=== PATIENT | female | born 1965 | race Caucasian/White ===

== ENCOUNTER → 2017-03-08 | Outpatient (CLI) | payer OTHER ==
[~2017-03-08] MED LIST: ADVIN10/60 INH; ALBU1AER9 INH; ATRINS NEB; B-COTAB18 PO; CARI350T28 PO; CETI10TA84 PO; DIAZ2TAB PO; ESOM1CAP34 PO; ESOM20CA PO; LEVO5TAB2 PO; MONT1TAB3 PO; MULT-506 PO; TRIA1SPR4; VNTHFA/IN INH
--- NOTE | 2017-03-08 10:41 | DIAGNOSTIC IMAGING REPORT ---
FUSION CT SINUSES W/O CLINICAL HISTORY: R51 Facial [id number] COMPARISON STUDY: No previous studies for comparison. FINDINGS: Helical images were acquired in the transverse plane. The study was reviewed on the 3-D workstation. No orbital lesions are visualized. There is no hydrocephalus. There is a left maxilla sinus air-fluid level consistent with acute sinusitis. The mastoid air cells are symmetrically aerated. The middle ear cavities are well aerated. There is mild mucosal thickening within the frontal, ethmoid and sphenoid sinuses. The right ostiomeatal unit appears patent. The ostial and infundibular portions of the left ostiomeatal unit are occluded by soft tissue. There is a small right-sided nasal septal spur. IMPRESSION: 1. Pansinus mucosal thickening 2. Left maxillary sinus air-fluid level suspicious for acute sinusitis 3. Occlusion of the ostial and infundibular portions of the left ostiomeatal unit by soft tissue Electronically signed by: Carlos Barrett M.D. 03/08/2017 10:38 AM Dictated Date/Time: 03/08/2017 10:25 AM
== END | disposition home or self-care (01) ==
LOC: C.CTS 10:09
PROVIDERS: ATTEND Physician Assistant
DX: R51 Headache (principal); D75.89 Other specified diseases of blood and blood-forming organs

== ENCOUNTER → 2017-05-09 | Outpatient (CLI) | payer OTHER | END | disposition home or self-care (01) | LOC: C.PAPS 16:08 | PROVIDERS: ATTEND Physician Assistant | DX: Z12.4 Encounter for screening for malignant neoplasm of cervix (principal) ==

== ENCOUNTER → 2017-05-09 | Outpatient (CLI) | payer OTHER ==
--- NOTE | 2017-05-09 14:37 | DIAGNOSTIC IMAGING REPORT ---
CHEST 2 VIEWS ROUTINE CLINICAL HISTORY: Cough COMPARISON STUDY: 04/20/2013 FINDINGS: The cardiac and mediastinal contours are normal. There is no evidence of focal pulmonary consolidation. There is no evidence of failure. No pleural effusions are visualized.[ IMPRESSION: No active disease in the chest. Electronically signed by: Carlos Barrett M.D. 05/09/2017 2:36 PM Dictated Date/Time: 05/09/2017 2:35 PM
== END | disposition home or self-care (01) ==
LOC: C.RADBC 14:15
PROVIDERS: ATTEND Physician Assistant Medical
DX: R05 Cough (principal)

== ENCOUNTER 2017-06-04 15:48 | Emergency (ER) | payer OTHER ==
[~2017-06-04] VITALS: Ht 174 cm; Wt 72.0 kg
[~2017-06-04 15:48] MED LIST changes: -ADVIN10/60 INH; -ATRINS NEB; -CETI10TA84 PO; -DIAZ2TAB PO; -ESOM1CAP34 PO; -LEVO5TAB2 PO; -MONT1TAB3 PO; -VNTHFA/IN INH
[2017-06-04 15:51] VITALS: Ht 174 cm; Wt 72.0 kg
[2017-06-04] MEDS ORDERED: MONT1TAB3 PO (16:12)
[2017-06-04] MEDS ORDERED: LEVO-371 PO (16:12)
[2017-06-04] MEDS ORDERED: ESOM1CAP34 PO (16:12)
[2017-06-04] MEDS ORDERED: VNTHFA/IN INH (16:12)
[2017-06-04] MEDS ORDERED: ADVIN10/60 INH (16:12)
[2017-06-04] MEDS ORDERED: CETI10TA84 PO (16:12)
[2017-06-04] MEDS ORDERED: ATRINS NEB (16:12)
[2017-06-04] MEDS ORDERED: ONDANSETRON INJ 2 MG/ML 2 ML VIAL IV STA (16:19)
[2017-06-04] MEDS ORDERED: KETOROLAC TROMETHAMINE 30 MG/ML VIAL IV STA (16:19)
--- NOTE | 2017-06-04 16:45 | EMERGENCY ROOM VISIT NOTE ---
History First contact with patient: 16:04 Chief Complaint: RIB PAIN Stated Complaint: BROKEN RIB, PNEMONIA History of Present Illness The patient is a 51 year old female who presents to the Emergency Room with complaints of left sided back pain. The patient was at a [employer] 2 hours ago and had a coughing fit during which point she felt a pop and immediate pain over her left side. She denies any pain at rest but when she has episodes of coughing she has 10/10 sharp pain over the lower thoracic ribs on her left side. She becomes very nauseous and has almost passed out because the pain was so severe. She tried to take Motrin for the discomfort but it was not helpful. Patient is currently receiving treatment for Pneumonia with Levaquin started by her PCP after failure of multiple other oral antibiotics. The patient has no chronic medical conditions and other than medications for allergies is on no other medications. She denies an fever, chills, abdominal pain, diarrhea, changes in vision, headache, or any other acute findings. Review of Systems See HPI for pertinent positives and negatives. A total of ten systems were reviewed and were otherwise negative. Past Medical/Surgical History Medical Problems: (1) Asthma (2) GERD (gastroesophageal reflux disease) (3) History of cystitis (4) Irritable bowel syndrome (IBS) (5) Lymphocytic colitis (6) Migraine headache (7) Pleurisy Surgical Problems: (1) History of tonsillectomy and adenoidectomy Social History Smoking Status: Never Smoker Current/Historical Medications Scheduled Albuterol Hfa (Ventolin Hfa), 2-4 PUFFS INH Q6H B-Complex Vitamins (Vitamin B Complex), 5,000 MCG PO QD Cetirizine (Zyrtec), 10 MG PO DAILY Diazepam (Valium), 2 MG PO BID Esomeprazole Magnesium (Esomeprazole Magnesium), 40 MG PO DAILY Fluticasone Prop/Salmeterol (Advair Diskus 100/50 60 Dose), 1 PUFFS INH BID Ipratropium [place] (Ipratropium [place]), 1 VIAL NEB DAILY Levocetirizine Dihydrochloride (Xyzal), 1 TAB PO DAILY Montelukast Sodium (Singulair), 1 TAB PO DAILY Multivitamin (Multivitamin), 1 TAB PO DAILY Allergies Coded Allergies: Penicillins (Verified Allergy, Intermediate, HIVES, 06/04/17) Sulfamethoxazole w/Trimethoprim (Verified Allergy, Intermediate, HIVES/ RASH/SWELLING, 06/04/17) Sulfa Antibiotics (Unverified Allergy, Unknown, ANAPHYLAXIS, 06/04/17) pt states that upon taking SULFA medications her lips and tongue swell. Prednisone (Verified Adverse Reaction, Intermediate, MUSCLE STIFFNESS, 06/04) Physical Exam Vital Signs Date Time Temp Pulse Resp B/P (MAP) Pulse Ox O2 Delivery O2 Flow Rate FiO2 06/04/17 18:50 80 18 111/71 98 Room Air 06/04/17 18:48 36.6 80 18 117/77 98 Room Air 06/04/17 15:51 36.6 80 18 117/77 98 Room Air Physical Exam GENERAL: Awake, alert, well-appearing, in no distress HENT: Normocephalic, atraumatic. EYES: Normal conjunctiva. Sclera non-icteric. NECK: Supple. No nuchal rigidity. RESPIRATORY: Bilateral wheezing in upper and lower lung hopson. CARDIAC: Regular rate, normal rhythm. Extremities warm and well perfused. Pulses equal. ABDOMEN: Soft, non-distended. No tenderness to palpation. No rebound or guarding. No masses. RECTAL: Deferred. MUSCULOSKELETAL: Tenderness to palpation over the left lower thoracic ribs. Worsening tenderness with cough. LOWER EXTREMITIES: Calves are equal size bilaterally and non-tender. No edema. No discoloration. NEURO: Normal sensorium. No sensory or motor deficits noted. SKIN: No rash or jaundice noted. Medical Decision & Procedures Laboratory Results 06/04/17 17:00 Red Blood Count 3.91, Mean Corpuscular Volume 98.2, Mean Corpuscular Hemoglobin 33.2, Mean Corpuscular Hemoglobin Concent 33.9, Mean Platelet Volume 9.8, Neutrophils (%) (Auto) 57.1, Lymphocytes (%) (Auto) 23.4, Monocytes (%) (Auto) 7.1, Eosinophils (%) (Auto) 11.5, Basophils (%) (Auto) 0.6, Neutrophils # (Auto ) 4.56, Lymphocytes # (Auto) 1.87, Monocytes # (Auto) 0.57, Eosinophils # (Auto ) 0.92, Basophils # (Auto) 0.05 06/04/17 17:00 Test 06/04/17 17:00 White Blood Count 7.99 K/uL (4.8-10.8) Red Blood Count 3.91 M/uL (4.2-5.4) Hemoglobin 13.0 g/dL (12.0-16.0) Hematocrit 38.4 % (37-47) Mean Corpuscular Volume 98.2 fL (80-100) Mean Corpuscular Hemoglobin 33.2 pg (25-34) Mean Corpuscular Hemoglobin Concent 33.9 g/dl (32-36) Platelet Count 276 K/uL (130-400) Mean Platelet Volume 9.8 fL (7.4-10.4) Neutrophils (%) (Auto) 57.1 % Lymphocytes (%) (Auto) 23.4 % Monocytes (%) (Auto) 7.1 % Eosinophils (%) (Auto) 11.5 % Basophils (%) (Auto) 0.6 % Neutrophils # (Auto) 4.56 K/uL (1.4-6.5) Lymphocytes # (Auto) 1.87 K/uL (1.2-3.4) Monocytes # (Auto) 0.57 K/uL (0.11-0.59) Eosinophils # (Auto) 0.92 K/uL (0-0.5) Basophils # (Auto) 0.05 K/uL (0-0.2) RDW Standard Deviation 44.9 fL (36.4-46.3) RDW Coefficient of Variation 12.5 % (11.5-14.5) Immature Granulocyte % (Auto) 0.3 % Immature Granulocyte # (Auto) 0.02 K/uL (0.00-0.02) Anion Gap 7.0 mmol/L (3-11) Est Creatinine Clear Calc Drug Dose 80.3 ml/min Estimated GFR () 90.7 Estimated GFR (Non- 78.2 BUN/Creatinine Ratio 10.8 (10-20) Calcium Level 9.1 mg/dl (8.5-10.1) Medications Administered Medications (Trade) Dose Ordered Sig/Mary Alice Route Start Time Stop Time Status Last Admin Dose Admin Ondansetron HCl (Zofran Inj) 4 mg NOW STAT IV 06/04/17 16:19 06/04/17 16:22 DC 06/04/17 16:42 4 MG Ketorolac Tromethamine (Toradol Inj) 30 mg NOW STAT IV 06/04/17 16:19 06/04/17 16:22 DC 06/04/17 16:41 30 MG Lidocaine (Lidoderm Patch 5%) 1 patch NOW ONCE TD 06/04/17 18:00 06/04/17 18:01 DC 06/04/17 18:47 1 PATCH Diazepam (Valium Tab) 5 mg NOW ONCE PO 06/04/17 18:30 06/04/17 18:31 DC 06/04/17 18:43 5 MG Medical Decision Patient is a 51 year old female that presents with a 2 hour history of left sided back pain Differential diagnosis includes rib fracture, muscle strain, pneumothorax, pneumonia, and other etiologies were considered Labs: CBC, BMP Imaging: Unilateral left sided rib X-Ray and PA Chest Medications: Toradol and Zofran Impression Primary Impression: Acute chest wall pain Rib Series and Chest X Ray revealed no acute fractures or lung infiltrates. Patient responded well to lidoderm patch and valium. Appears that injury is most likely an aggrivation of previous rib fracture or muscle strain. Patient given [place] on discharge with instructions to take 1 tab every 6 hours as needed for pain and to follow up with her PCP in the next week. Departure Information Dispostion Home / Self-Care Condition GOOD Prescriptions Diazepam (Valium) 2 Mg Tab 2 MG PO BID for 7 Days, #14 TAB Prov: Keshawn Corral .MD 06/04/17 Referrals Donaldo Rowe M.D. (PCP) Patient Instructions My [facility]
[2017-06-04 17:11] LABS: BASO % 0.6 %; BASO ABS # 0.05 K/uL (0-0.2); COMPLETE YES; EOS % 11.5 %; HEMATOCRIT 38.4 % (37-47); IG% 0.3 %; LYMPH % 23.4 %; LYMPH ABS # 1.87 K/uL (1.2-3.4); MEAN CELL VOLUME 98.2 fL (80-100); MEAN CORPUSCULAR HEMOGLOBIN 33.2 pg (25-34); MEAN CORPUSCULAR HGB CONC 33.9 g/dl (32-36); MEAN PLATELET VOLUME 9.8 fL (7.4-10.4); MONO % 7.1 %; NEUT % 57.1 %; PLATELET COUNT 276 K/uL (130-400); RED BLOOD COUNT 3.91 M/uL (4.2-5.4); WHITE BLOOD COUNT 7.99 K/uL (4.8-10.8)
[2017-06-04 17:29] LABS: BUN/CREATININE RATIO 10.8 (10-20); CALCIUM 9.1 mg/dl (8.5-10.1); CREATININE 0.87 mg/dl (0.60-1.20); POTASSIUM 3.7 mmol/L (3.5-5.1)
--- NOTE | 2017-06-04 17:38 | DIAGNOSTIC IMAGING REPORT ---
PA CHEST WITH LEFT-SIDED RIBS ARE CLINICAL HISTORY: Left-sided back pain. FINDINGS: A PA chest radiograph with 4 additional views may left-sided rib series is compared to study dated 05/09/2017. The cardiomediastinal silhouette is unremarkable. The lungs and pleural spaces are clear. No pneumothorax is seen. There is a healed left posterior sixth rib fracture. No acute left-sided rib fracture is identified on the rib series. The remainder of the bony thorax is grossly intact. IMPRESSION: 1. The lungs are clear. 2. There is no radiographic evidence of acute left-sided rib fracture on the rib series. Electronically signed by: Manuel Grove M.D. 06/04/2017 5:37 PM Dictated Date/Time: 06/04/2017 5:35 PM
[2017-06-04] MEDS ORDERED: LIDODERM (LIDOCAINE) PATCH 5% TD ONE (18:00)
[2017-06-04] MEDS ORDERED: DIAZ2TAB PO (18:27)
[2017-06-04] MEDS ORDERED: DIAZEPAM 5MG TAB PO ONE (18:30)
--- NOTE | 2017-06-04 18:30 | EMERGENCY ROOM VISIT NOTE ---
ED Visit Note First contact with patient: 15:57 Pt seen and examined at bedside. Discussed presentation/eval/tx with resident. Likely subtle rib fx vs strain and subsequent spasm. Patient tonight was stable, no evidence of pneumothorax, no hypoxia. We'll attempt to control patient's pain, discussed follow-up with family doctor. Patient's labs reassuring and chest x-ray did not show any evidence of residual pneumonia for which patient is still finishing a course of Levaquin for. Doubt cardiac etiology, vascular etiology, GI bleed, perforation. Patient's pain reproducible the left lateral posterior aspect similar area of prior rib fracture, and patient feels this is similar to prior fracture in terms of pain and difficulty taking a deep breath. Doubt PE, patient with no risk factors for PE/DVT. Discussed sx to watch/return for, use of meds, she verbalized understanding and was agreeable with plan.
[2017-06-04] MEDS ORDERED: NORCO 5/325MG HOME PACK PO ONE (19:15)
[2017-06-04 19:19] VITALS: BP 111/71; PULSE 80; TEMP 36.6; O2SAT 98
--- NOTE | 2017-06-05 11:56 | Pharmacy Progress Note ---
ED Pharmacist Progress Note Date of Service: Jun 05, 2017. Received call from [facility] - prescription for diazepam had a statement on the bottom indicating that the prescription was not valid. [facility] wanted to confirm if prescription was indeed provided to the patient. I provided verbal confirmation that Dr. Corral did prescribe diazepam 2 mg po BID #14 tab.
== END 2017-06-04 19:20 | disposition home or self-care (01) ==
LOC: C.EDB 15:49 → C.EDC 19:20
DX: R07.89 Other chest pain (principal); J45.909 Unspecified asthma, uncomplicated; K21.9 Gastro-esophageal reflux disease without esophagitis; K58.9 Irritable bowel syndrome, unspecified; K52.832 Lymphocytic colitis

== ENCOUNTER → 2017-08-14 | Outpatient (CLI) | payer OTHER ==
[~2017-08-14] MED LIST changes: +ADVIN10/60 INH; -ALBU1AER9 INH; +ATRINS NEB; -CARI350T28 PO; +CETI10TA84 PO; +ESOM1CAP34 PO; -ESOM20CA PO; +LEVO-371 PO; +MONT1TAB3 PO; -TRIA1SPR4; +VNTHFA/IN INH
[2017-08-14 14:19] LABS: URINE APPEARANCE CLEAR (CLEAR); URINE BILIRUBIN NEG (NEG); URINE COLOR YELLOW; URINE EPITHELIAL CELL AUTO 0-5 /lpf (0-5); URINE NITRITE NEG (NEG); URINE PH 6.5 (4.5-7.5); URINE SPECIFIC GRAVITY 1.011 (1.000-1.030); UROBILINOGEN NEG (NEG)
[2017-08-14 14:23] LABS: REVIEW REQ? NO
[2017-08-14 14:24] LABS: MANUAL MICROSCOPIC REQUIRED? NO
== END | disposition home or self-care (01) ==
LOC: C.LAB1850 10:53
PROVIDERS: ATTEND Internal Medicine
DX: R39.9 Unspecified symptoms and signs involving the genitourinary system (principal)